=== PATIENT | female | born 2000 | race Hispanic/Latino ===

== ENCOUNTER 2018-09-01 08:36 | Outpatient (CLI) | payer OTHER ==
--- NOTE | 2018-09-01 10:39 | ULT ---
ULTRASOUND OBSTETRICAL COMPLETE: DATE: 09-01-18 HISTORY: 18-year-old female with Z34.82, encounter for supervision of other normal , seco nd trimester. FINDINGS: number: Grajeda lie: Footling breech Maternal cervix: 6 cm in length and closed Placenta: Posterior. No placenta previa. Amniotic fluid volume: MAYTE = 11.5 cm heart rate: 149 bpm The following anatomy is visualized, with no evidence of anomalies: Head, lateral ventricles, cerebellum, nose and lips, spine, upper limbs, lower limbs, four chamber he art, umbilical cord, cord insertion, stomach, kidneys, and bladder. biometry: Head circumference (HC): 18.6 cm 21 w 0 d Biparietal diameter (BPD): 5.0 cm 21 w 1 d Abdominal circumference (AC): 15.7 cm 21 w 0 d Femur length (FL): 3.4 cm 20 w 6 d Average ultrasound age (AUA): 21 w 0 d Estimated date of delivery (KALI): Last menstrual period (LMP): 03-24-2018 Gestational age by LMP: 23 w 0 d Estimated weight (EFW): 383 g +/- 56 g IMPRESSION: 1. Live second trimester intrauterine gestation. 2. Estimated gestational age of 21 weeks, 0 days. 3. Footling breech lie. 4. No anatomical abnormalities. mojgan POS: [email or web address]
== END 2018-09-01 08:37 | disposition home or self-care (01) ==
LOC: BICULT 08:36
PROVIDERS: ATTEND Family Medicine
DX: Z34.82 Encounter for supervision of other normal pregnancy, second trimester (principal); Z3A.21 21 weeks gestation of pregnancy
CPT/HCPCS: 76805